=== PATIENT | male | born 1965 | race Caucasian/White ===

== ENCOUNTER 2019-08-24 22:21 | Emergency (ER) | payer MEDICARE, MEDICAID ==
--- NOTE | 2019-08-24 22:55 | EDM.PDOC ---
ED HPI GENERAL MEDICAL PROBLEM - General Stated Complaint: SOB Time Seen by Provider: 08/24/19 22:54 Source of Information: Reports: Patient History Limitations: Reports: No Limitations - History of Present Illness INITIAL COMMENTS - FREE TEXT/NARRATIVE: 54-year-old male who reports that he was quite sad today because he had to " have his cat put down" and he was at work thinking about that at approximately 9 :30 PM and began to have hyperventilation. He stepped outside to try to get it under control but it continued and he developed a tightness sharp pain in his lower sternal chest and an ambulance was called to bring him to the emergency department for evaluation. By the time the patient arrives here his hyperventilation is resolving in his symptoms are going away. He still has about a 4/10 level of pain in his lower sternal and epigastric area. His shortness of breath has pretty much resolved. No nausea or vomiting. No fevers or chills. No antecedent symptoms. He does report that he has a history of seizures and has not had one for quite a long time but in the past he did associated hyperventilation with a seizure. He is currently on Keppra and has been taking his medicine as directed every day. He also has had no hemoptysis or cough or cold type symptoms prior to this. There are no other associated signs or symptoms. There are no other modifying factors. 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) - Related Data Allergies Allergy/AdvReac Type Severity Reaction Status Date / Time No Known Allergies Allergy Verified 11/08/18 19:50 Home Meds: Home Meds Cholecalciferol (Vitamin D3) [Vitamin D3] 2,000 unit PO DAILY 02/02/16 [History] FLUoxetine [PROzac] 40 mg PO DAILY 02/02/16 [History] Gluc HCl/Csa/Makeda Hy/Hyalur Ac [Glucosamine Chondroitin] 1 tab PO TID 02/02/16 [ History] Multivit-Min/FA/Lycopene/Lut [Centrum Silver Tablet] 1 tab PO DAILY 02/02/16 [ History] Omeprazole [Prilosec] 20 mg PO BID 02/02/16 [History] Simvastatin [Zocor] 20 mg PO BEDTIME 02/02/16 [History] Warfarin [Coumadin] 2.5 - 5 mg PO ASDIRECTED 02/02/16 [History] levETIRAcetam [Keppra] 1,500 mg PO BID 02/02/16 [History] Naproxen 500 mg PO ASDIRECTED PRN 02/03/16 [History] Amoxicillin/Potassium Clav [Augmentin 875-125 Tablet] 1 each PO BID #20 tablet 11/08/18 [Rx] Past Medical History Cardiovascular History: Reports: Blood Clots/VTE/DVT, High Cholesterol Gastrointestinal History: Reports: GERD Musculoskeletal History: Reports: Arthritis, Connective Tissue Disease Other Musculoskeletal History: LIMITED CARTILAGE IN KNEE Neurological History: Reports: Seizure Psychiatric History: Reports: Depression, Developmental Delay Hematologic History: Reports: Anticoagulation Therapy (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) ED ROS GENERAL - Review of Systems Review Of Systems: See Below Constitutional: Reports: No Symptoms HEENT: Reports: No Symptoms Respiratory: Reports: Shortness of Breath, Other (Hyperventilating) Cardiovascular: Reports: Chest Pain GI/Abdominal: Reports: No Symptoms : Reports: No Symptoms Musculoskeletal: Reports: No Symptoms Skin: Reports: No Symptoms Neurological: Reports: No Symptoms Psychiatric: Reports: Anxiety, Other (Feels sad because of his Cat.) Hematologic/Lymphatic: Reports: Easy Bleeding, Easy Bruising, Other (On chronic anticoagulants with Coumadin.) Immunologic: Reports: No Symptoms ED EXAM, GENERAL - Physical Exam Exam: See Below Exam Limited By: No Limitations General Appearance: Alert, Mild Distress, Obese, Other (Appear sad) Eye Exam: Bilateral Eye: EOMI, Normal Inspection, PERRL Ears: Normal External Exam, Hearing Grossly Normal Ear Exam: Bilateral Ear: Auricle Normal Nose: Normal Inspection, Normal Mucosa Throat/Mouth: Normal Inspection, Normal Oropharynx, Normal Voice, No Airway Compromise Head: Atraumatic, Normocephalic Neck: Normal Inspection, Supple, Non-Tender, Full Range of Motion Respiratory/Chest: No Respiratory Distress, Lungs Clear, Normal Breath Sounds, No Accessory Muscle Use, Other (Tender to palpation over his lower midline chest and epigastric area) Cardiovascular: Normal Peripheral Pulses, Regular Rate, Rhythm, No Murmur Peripheral Pulses: 2+: Radial (L), Radial (R), Dorsalis Pedis (L), Dorsalis Pedis (R) GI/Abdominal: Normal Bowel Sounds, Soft, No Mass, Tender (Mildly tender in epigastrium. Nontender completely elsewhere.) Back Exam: Normal Inspection Extremities: Normal Capillary Refill, Other (Chronic edema in both lower extremities with left lower leg worse than the right) Neurological: Alert, Oriented, CN II-XII Intact, No Motor/Sensory Deficits Psychiatric: Depressed Mood Skin Exam: Warm, Dry, Intact, Normal Color EKG INTERPRETATION EKG Date: 08/24/19 Time: 22:45 Rhythm: NSR Rate (Beats/Min): 65 [place]: Normal P-Wave: Present QRS: Normal ST-T: Normal QT: Normal Comparison: NA - No Prior EKG EKG Interpretation Comments: Normal EKG. Course - Vital Signs Last Recorded V/S: Last Vital Signs Temp 36.6 C 08/24/19 22:25 Pulse Resp BP Pulse Ox - Orders/Labs/Meds Orders: Active Orders 24 hr Category Date Time Status EKG Documentation Completion [RC] ASDIRECTED Care 08/24/19 23:05 Active Sodium Chloride 0.9% [Saline Flush] Med 08/24/19 23:05 Active 10 ml FLUSH ASDIRECTED PRN Peripheral IV Insertion Adult [OM.PC] Routine Oth 08/24/19 23:05 Ordered EKG 12 Lead [EK] Routine Ther 08/24/19 23:05 Ordered Medication Orders Sodium Chloride (Saline Flush) 10 ml FLUSH ASDIRECTED PRN PRN Reason: Keep Vein Open Labs: Laboratory Tests 08/24/19 08/24/19 08/24/19 Range/Units 23:20 23:20 23:20 WBC 9.1 (4.5-12.0) X10-3/uL RBC 4.34 (4.30-5.75) x10(6)uL Hgb 11.9 L (13.5-17.8) g/dL Hct 35.9 (30.0-51.3) % MCV 82.9 (80-96) fL MCH 27.5 L (27.7-33.6) pg MCHC 33.1 (32.2-35.4) g/dL RDW 13.3 (11.5-15.5) % Plt Count 326 (125-369) X10(3)uL MPV 7.9 (7.4-10.4) fL Neut % (Auto) 57.6 (46-82) % Lymph % (Auto) 34.3 (13-37) % [place] % (Auto) 6.6 (4-12) % Eos % (Auto) 1 (1.0-5.0) % Baso % (Auto) 0 (0-2) % Neut # (Auto) 5.3 (1.6-8.3) # Lymph # (Auto) 3.1 (0.6-5.0) # [place] # (Auto) 0.6 (0.0-1.3) # Eos # (Auto) 0.1 (0.0-0.8) # Baso # (Auto) 0.0 (0.0-0.2) # PT 27.9 H (8.7-11.1) INR 2.91 H (0.89-1.13) Sodium 141 (135-145) mmol/L Potassium 4.1 (3.5-5.3) mmol/L Chloride 104 (100-110) mmol/L Carbon Dioxide 29 (21-32) mmol/L BUN 12 (7-18) mg/dL Creatinine 0.8 (0.70-1.30) mg/dL Est Cr Clr Drug Dosing TNP Estimated GFR (MDRD) > 60 (>60) BUN/Creatinine Ratio 15.0 (9-20) Glucose 124 H (80-116) mg/dL Calcium 9.3 (8.6-10.2) mg/dL Magnesium (1.8-2.5) mg/dL Total Bilirubin 0.6 (0.1-1.3) mg/dL AST 21 (5-25) IU/L ALT 28 (12-36) U/L Alkaline Phosphatase 92 (56-112) IU/L Troponin I (<0.017-0.056) ng/mL Total Protein 7.9 (6.0-8.0) g/dL Albumin 3.4 L (3.5-5.2) g/dL Globulin 4.5 g/dL Albumin/Globulin Ratio 0.8 08/24/19 08/24/19 Range/Units 23:20 23:20 WBC (4.5-12.0) X10-3/uL RBC (4.30-5.75) x10(6)uL Hgb (13.5-17.8) g/dL Hct (30.0-51.3) % MCV (80-96) fL MCH (27.7-33.6) pg MCHC (32.2-35.4) g/dL RDW (11.5-15.5) % Plt Count (125-369) X10(3)uL MPV (7.4-10.4) fL Neut % (Auto) (46-82) % Lymph % (Auto) (13-37) % [facility] % (Auto) (4-12) % Eos % (Auto) (1.0-5.0) % Baso % (Auto) (0-2) % Neut # (Auto) (1.6-8.3) # Lymph # (Auto) (0.6-5.0) # [facility] # (Auto) (0.0-1.3) # Eos # (Auto) (0.0-0.8) # Baso # (Auto) (0.0-0.2) # PT (8.7-11.1) INR (0.89-1.13) Sodium (135-145) mmol/L Potassium (3.5-5.3) mmol/L Chloride (100-110) mmol/L Carbon Dioxide (21-32) mmol/L BUN (7-18) mg/dL Creatinine (0.70-1.30) mg/dL Est Cr Clr Drug Dosing Estimated GFR (MDRD) (>60) BUN/Creatinine Ratio (9-20) Glucose (80-116) mg/dL Calcium (8.6-10.2) mg/dL Magnesium 1.9 (1.8-2.5) mg/dL Total Bilirubin (0.1-1.3) mg/dL AST (5-25) IU/L ALT (12-36) U/L Alkaline Phosphatase (56-112) IU/L Troponin I < 0.017 L (<0.017-0.056) ng/mL Total Protein (6.0-8.0) g/dL Albumin (3.5-5.2) g/dL Globulin g/dL Albumin/Globulin Ratio Meds: Medications Generic Name Dose Route Start Last Admin Trade Name Freq PRN Reason Stop Dose Admin Sodium Chloride 10 ml 08/24/19 23:05 Saline Flush FLUSH ASDIRECTED PRN Keep Vein Open Discontinued Medications Generic Name Dose Route Start Last Admin Trade Name Freq PRN Reason Stop Dose Admin Lorazepam 1 mg 08/24/19 23:06 Ativan IVPUSH 08/24/19 23:07 ONETIME ONE - Re-Assessments/Exams Free Text/Narrative Re-Assessment/Exam: 08/24/19 23:55: The patient's EKG was normal. His blood tests were reassuringly normal. He appears to have had a hyperventilation episode related to a grief response. There does not appear to be anything serious going on at this point. His symptoms are now completely resolved. He was given Ativan 1 mg IV in the emergency department with good resolution of his symptoms. I feel he is safe for discharge. I discussed this with the patient and he is in agreement with plan for discharge. Departure - Departure Time of Disposition: 00:05 Disposition: Home, Self-Care 01 Condition: Good (Improved) Clinical Impression: Hyperventilation, Grief reaction, Atypical chest pain - Discharge Information Instructions: Nonspecific Chest Pain, [id number], Chest Wall Pain, Easy-to- Read, Hyperventilation Referrals: Ramos Coker MD [Primary Care Provider] - Additional Instructions: You had a hyperventilation episode. This is what appears to have caused your shortness of breath and the pain in your chest. The pain in her chest appeared to be in the muscles in your chest wall. Your blood tests were reassuringly normal. Your EKG or heart tracing was normal. Follow-up with your primary doctor as needed. Back to the emergency department for worse breathing, worsening chest pain, unrelenting vomiting or any other concerning sign or symptom. - My Orders Last 24 Hours: My Active Orders 08/24/19 23:05 EKG Documentation Completion [RC] ASDIRECTED Sodium Chloride 0.9% [Saline Flush] 10 ml FLUSH ASDIRECTED PRN Peripheral IV Insertion Adult [OM.PC] Routine EKG 12 Lead [EK] Routine - Assessment/Plan Last 24 Hours: My Active Orders 08/24/19 23:05 EKG Documentation Completion [RC] ASDIRECTED Sodium Chloride 0.9% [Saline Flush] 10 ml FLUSH ASDIRECTED PRN Peripheral IV Insertion Adult [OM.PC] Routine EKG 12 Lead [EK] Routine
[2019-08-24] MEDS ORDERED: Sodium Chloride 0.9% 10 ML Syringe FLUSH PRN (23:05)
[2019-08-24] MEDS ORDERED: LORazepam 2 MG/ML SDV IVPUSH ONE (23:06)
[2019-08-25 01:49] VITALS: BP 147/61; PULSE 67
== END 2019-08-25 00:40 | disposition home or self-care (01) ==
LOC: FB.ED 22:21
DX: F43.20 Adjustment disorder, unspecified (principal); R06.4 Hyperventilation; R07.89 Other chest pain; E78.5 Hyperlipidemia, unspecified; I82.409 Acute embolism and thrombosis of unspecified deep veins of unspecified lower extremity; K21.9 Gastro-esophageal reflux disease without esophagitis; F32.9 Major depressive disorder, single episode, unspecified; Z79.01 Long term (current) use of anticoagulants
CPT/HCPCS: 36415; 80053; 83735; 84484; 85025; 85610; 93005; 93010; 96374; 99284; 99284-25; J2060

== ENCOUNTER 2025-03-28 16:57 | Emergency (ER) | payer MEDICARE, MEDICAID ==
[2025-03-28] MEDS ORDERED: Sodium Chloride 0.9% 10 ML Syringe FLUSH PRN (17:03)
[2025-03-28 17:29] LABS: EOSINOPHILS ABSOLUTE AUTO 0.2 x10-3/uL (0.0-0.6); LYMPHOCYTES ABSOLUTE AUTO 1.7 x10-3/uL (0.5-4.5); MONOCYTES ABSOLUTE AUTO 0.4 x10-3/uL (0.0-1.2); NEUTROPHILS ABSOLUTE AUTO 2.6 x10-3/uL (1.7-6.9); RED CELL DISTRIBUTION WIDTH 13.7 % (12.4-15.0)
[2025-03-28 17:30] LABS: BLOOD UREA NITROGEN,BUN 16 mg/dL (7-18); BUN/CREATININE RATIO 17.8 (9-20); CALCIUM 9.1 mg/dL (8.6-10.2); CARBON DIOXIDE,CO2 29 mmol/L (21-32); CHLORIDE,CL 104 mmol/L (100-110); CREATININE 0.9 mg/dL (0.70-1.30); ESTIMATED GFR 97 mL/min (>60); GLUCOSE RANDOM 90 mg/dL (80-116); POTASSIUM,K 3.9 mmol/L (3.5-5.3); SODIUM,NA 139 mmol/L (135-145)
[2025-03-28 17:32] LABS: INR 1.03 (1.00-1.24); PROTHROMBIN TIME 10.7 sec (9.0-11.1)
[2025-03-28 17:35] LABS: BASOPHILS PERCENT AUTO 0.7 % (0.3-3.8); EOSINOPHILS PERCENT AUTO 3.6 % (0.1-6.8); HEMATOCRIT 33.5 % (38.3-50.1); HEMOGLOBIN 11.9 g/dL (12.9-17.7); LYMPHOCYTES PERCENT AUTO 34.9 % (15.8-45.3); MEAN CORPUSCULAR HEMOGLOBIN 30.7 pg (27.0-33.3); MEAN CORPUSCULAR HGB CONC 35.4 g/dL (28.7-35.3); MEAN CORPUSCULAR VOLUME 86.5 fL (80.8-98.7); MEAN PLATELET VOLUME 7.4 fL (6.7-11.0); MONOCYTES PERCENT AUTO 8.6 % (5.5-15.2); NEUTROPHILS PERCENT AUTO 52.2 % (40.3-71.8); PLATELET COUNT,PLT 225 x10(3)uL (117-477); RED BLOOD CELL COUNT 3.87 x10(6)uL (3.90-5.90)
[2025-03-28 17:38] LABS: ALANINE AMINOTRANSFERASE,ALT 30 U/L (12-36); ALBUMIN 3.6 g/dL (3.2-4.6); ALKALINE PHOSPHATASE 65 IU/L (56-112); ASPARTATE AMNIOTRANSFERASE,AST 22 IU/L (5-25); BILIRUBIN TOTAL 0.5 mg/dL (0.1-1.3); PROTEIN TOTAL,TP 7.4 g/dL (6.0-8.0)
[2025-03-28 18:11] VITALS: BP 125/71; PULSE 57
== END 2025-03-28 18:09 ==
LOC: FB.ED 16:57
DX: S09.90XA Unspecified injury of head, initial encounter (principal); K21.9 Gastro-esophageal reflux disease without esophagitis; Z79.899 Other long term (current) drug therapy; Y04.8XXA Assault by other bodily force, initial encounter; Y92.002 Bathroom of unspecified non-institutional (private) residence as the place of occurrence of the external cause
CPT/HCPCS: 36415; 70450; 80053; 85025; 85610; 93005; 99284

== ENCOUNTER 2025-07-09 18:37 | Emergency (ER) | payer MEDICARE, MEDICAID ==
[2025-07-09 21:15] VITALS: PULSE 65
[2025-07-09 21:16] VITALS: BP 110/69
== END 2025-07-09 20:58 ==
LOC: FB.ED 18:37
DX: S00.31XA Abrasion of nose, initial encounter (principal); E78.00 Pure hypercholesterolemia, unspecified; K21.9 Gastro-esophageal reflux disease without esophagitis; Z79.01 Long term (current) use of anticoagulants; Z79.899 Other long term (current) drug therapy; W19.XXXA Unspecified fall, initial encounter
CPT/HCPCS: 70450; 99283